=== PATIENT | male | born 1990 | race Caucasian/White ===

== ENCOUNTER 2020-03-11 11:42 | Inpatient (IN) ==
[2020-03-11] MEDS ORDERED: BENTYL PO PRN (12:14)
[2020-03-11] MEDS ORDERED: DULCOLAX PR PRN (12:14)
[2020-03-11] MEDS ORDERED: MOTRIN PO PRN (12:14)
[2020-03-11] MEDS ORDERED: ZOFRAN ODT PO PRN (12:14)
[2020-03-11] MEDS ORDERED: PHENOBARBITAL IV PRN (12:14)
[2020-03-11] MEDS ORDERED: ATARAX PO PRN (12:14)
[2020-03-11] MEDS ORDERED: TYLENOL PO PRN (12:14)
[2020-03-11] MEDS ORDERED: SALINE LOCK IV FLUID XX ONE (12:14)
[2020-03-11] MEDS ORDERED: MAALOX PLUS LIQUID PO PRN (12:14)
[2020-03-11] MEDS ORDERED: ZOFRAN IV PRN (12:14)
[2020-03-11] MEDS ORDERED: ROBAXIN PO PRN (12:14)
[2020-03-11] MEDS ORDERED: DESYREL PO PRN (12:14)
[2020-03-11] MEDS ORDERED: SENOKOT PO PRN (12:14)
[2020-03-11] MEDS ORDERED: NICODERM PATCH TD PRN (12:14)
[2020-03-11] MEDS ORDERED: D5W 1,000 ML IV PRN (12:14)
[2020-03-11] MEDS ORDERED: IMODIUM PO PRN (12:14)
[2020-03-11] MEDS ORDERED: TUBERSOL ID ONE (12:14)
[2020-03-11 12:46] LABS: HEMATOCRIT 43.1 % (42.0-52.0); HEMOGLOBIN 13.8 g/dL (14.0-18.0); MCH 31.9 PG (27-31); MCV 99.8 FL (81-99); MPV 10.2 FL (7.4-10.4); RBC 4.32 XMIL (4.7-6.1); RDW 14.9 % (11.5-14.5); WBC 6.36 X1000 (4.8-10.8)
[2020-03-11 13:02] LABS: AGAP 15; ALBUMIN 5.2 g/dL (3.5-5.0); ALKALINE PHOSPHATASE 44 U/L (32-122); BUN 14 mg/dL (8-22); CALCIUM 9.5 mg/dL (8.8-10.2); CHLORIDE 98 mmol/L (98-107); COSMO 277; CREATININE 0.7 mg/dL (0.7-1.2); ESTIMATED GFR > 60; GLUCOSE 87 mg/dL (70-104); GOT 40 U/L (10-34); GPT 36 U/L (10-44); INR 0.95; POTASSIUM 4.5 mmol/L (3.5-5.1); PROTIME 13.1 Seconds (11.0-16.0); SODIUM 139 mmol/L (136-145); TCO2 26 mmol/L (25-35); TOTAL PROTEIN 7.6 g/dL (6.3-8.3)
[2020-03-11 13:05] LABS: AMYLASE 50 U/L (20-200); LIPASE 40 U/L (13-60)
[2020-03-11 13:30] LABS: URINE SOURCE CLEAN CATCH
[2020-03-11 13:43] LABS: BILIRUBIN URINE NEGATIVE (NEGATIVE); BLOOD URINE NEGATIVE (NEGATIVE); CLARITY CLEAR (CLEAR); COLOR YELLOW; GLUCOSE URINE NEGATIVE (NEGATIVE); KETONE URINE 15 mg/dL (NEGATIVE); PH URINE 6.5; URINE EPITHELIAL CELLS <10 /HPF (<10); URINE WBC <10 /HPF (<10)
[2020-03-11 13:44] LABS: LEUKOCYTES URINE TRACE (NEGATIVE); NITRITE URINE NEGATIVE (NEGATIVE); PROTEIN URINE TRACE mg/dL (NEGATIVE); UROBILINOGEN URINE 0.2 EU/dL (0.2-1.0)
[2020-03-11 13:45] LABS: UR AMPHETAMINES QUAL PRESUMPTIVE POSITIVE (NONE DETECT); UR BARBITUATES QUAL NONE DETECTED (NONE DETECT); UR BENZODIAZEPIN QUAL NONE DETECTED (NONE DETECT); UR CANNABINOIDS QUAL NONE DETECTED (NONE DETECT); UR COCAINE QUAL NONE DETECTED (NONE DETECT); UR METHADONE QUAL NONE DETECTED (NONE DETECT); UR METHAMPHETAMINE QUAL NONE DETECTED (NONE DETECT); UR OPIATES QUAL NONE DETECTED (NONE DETECT); UR OXYCODONE QUAL NONE DETECTED (NONE DETECT); UR PCP QUAL NONE DETECTED (NONE DETECT); UR PROPOXYPHENE QUAL NONE DETECTED (NONE DETECT); UR TCA QUAL NONE DETECTED (NONE DETECT)
[2020-03-11] MEDS ORDERED: M.V.I.-12 10 ML, FOLIC ACID 1 MG, MAGNESIUM SULFATE 1 GM, THIAMINE 100 MG in NS 1,000 ML IV ONE (14:00)
[2020-03-11] MEDS: LIBRIUM PO SCH ×2 (14:22→21:10)
[2020-03-11] MEDS: SEROQUEL PO PRN (21:10)
[2020-03-12] MEDS: LIBRIUM PO SCH ×4 (02:56→20:00)
[2020-03-12] MEDS: THERA M PLUS PO SCH (08:28)
[2020-03-12] MEDS: FOLIC ACID PO SCH (08:28)
[2020-03-12] MEDS: VITAMIN B-1 PO SCH (08:28)
--- NOTE | 2020-03-12 10:18 | PROGRESS NOTE ---
DATE: 03/12/2020 SUBJECTIVE: Patient notes he feels okay. His tremors are improving. Denies any current vomiting or nausea. States sweating is improved. Did sleep a little bit last night. OBJECTIVE: Vital Signs: On physical examination, vitals were reviewed. He is afebrile. Pulse 80s, blood pressure 110s systolic. General: Patient is very pleasant. He is in no distress. HEENT: Normocephalic. Neck: Supple. Cardiovascular: Regular rate. Chest: Clear. Abdomen: Soft. Extremities: Moves all extremities. Neurologic: No changes. ASSESSMENT: 1. Nausea, vomiting. 2. Abdominal pain. 3. Myalgias. 4. Paresthesias. 5. Paroxysmal sweating. 6. Mitral valve prolapse. 7. Narcolepsy. 8. Alcohol abuse withdrawal and stabilization. PLAN: We will continue patient in hospital, continue to follow, continue counseling. Further orders as needed. cc: Cristian Charles MD
--- NOTE | 2020-03-12 10:31 | HISTORY AND PHYSICAL ---
CHIEF COMPLAINT: Nausea, vomiting. HISTORY OF PRESENT ILLNESS: The patient is a very pleasant 29-year-old male who presented to [facility] secondary to nausea, vomiting, abdominal pain and myalgias. States he has been having some minimal tremors although notes that all these symptoms worsen the longer he goes without alcohol. SOCIAL HISTORY: Patient is single, lives at home. He is employed at the [employer]. PAST MEDICAL HISTORY: Significant for narcolepsy, chronic anxiety, history of mitral valve prolapse. MEDICATIONS: Sunosi 150 mg daily for narcolepsy, Effexor, bisoprolol 5 mg for his mitral prolapse syndrome. ALLERGIES: Augmentin and sulfa. REVIEW OF SYSTEMS: CIWA score is elevated at 14 secondary to nausea, vomiting, abdominal pain, paroxysmal sweating, myalgias, tremors, mild headache, moderately anxious, agitated, feels as though his skin is crawling, unable to sleep, poor energy levels. Denies headaches, blurred vision, change in vision. Denies any focalized numbness, tingling, weakness in his extremities. Denies dysuria, urinary frequency, urgency, hesitancy, polyuria or polydipsia. Denies skin rashes, weight loss, weight gain. SUBSTANCE ABUSE HISTORY: Patient was in treatment in [place] in 2018. Unfortunately, he has progressively worsened. He is up to 2 pints a day, messing up at work, has huge anxiety until lunch when he can drink again. Started drinking at 15, currently drinks 2 pints a day for the past 3 or 4 months. Prior to that was 1 to 1-1/2 pints a day. Started smoking at 18, has been vaping for the last year. Denies any other illicit substances. FAMILY HISTORY: Noncontributory. PHYSICAL EXAMINATION: VITAL SIGNS: Reviewed. GENERAL: Patient is awake, alert, pleasant, no distress. HEENT: Normocephalic. NECK: Supple. CARDIOVASCULAR: Regular rate. No murmurs. CHEST: Clear, nonlabored. No wheezing. ABDOMEN: Soft, nondistended, nontender. EXTREMITIES: Moves all extremities. NEUROLOGIC: No focal changes. SKIN: Warm, dry, no rashes. ASSESSMENT: 1. Nausea, vomiting. 2. Abdominal pain. 3. Tremors. 4. Myalgias. 5. Paresthesias. 6. Alcohol abuse withdrawal and stabilization. 7. Mitral valve prolapse. 8. Narcolepsy. PLAN: Will admit patient to hospital, place on high-dose Librium taper, continue to follow. We will restart his home medications as needed. Discussed with patient the use of Librium. Discussed avoidance of alcohol in the future as well as begin discussion with medication-assisted therapy, i.e. naltrexone. cc: Cristian Charles MD
[2020-03-12] MEDS: SEROQUEL PO PRN (22:11)
[2020-03-13] MEDS: LIBRIUM PO SCH ×4 (02:22→21:27)
[2020-03-13] MEDS: EFFEXOR XR PO SCH (08:40)
[2020-03-13] MEDS: THERA M PLUS PO SCH (08:40)
[2020-03-13] MEDS: FOLIC ACID PO SCH (08:40)
[2020-03-13] MEDS: ZEBETA PO SCH (08:40)
[2020-03-13] MEDS: VITAMIN B-1 PO SCH (08:40)
[2020-03-13] MEDS: PATIENT'S OWN MED PO SCH (08:41)
[2020-03-13] MEDS: SEROQUEL PO PRN (21:36)
[2020-03-14] MEDS: THERA M PLUS PO SCH (09:19)
[2020-03-14] MEDS: EFFEXOR XR PO SCH (09:19)
[2020-03-14] MEDS: ZEBETA PO SCH (09:19)
[2020-03-14] MEDS: FOLIC ACID PO SCH (09:19)
[2020-03-14] MEDS: VITAMIN B-1 PO SCH (09:19)
[2020-03-14] MEDS: LIBRIUM PO SCH ×3 (09:19→20:17)
[2020-03-14] MEDS: PATIENT'S OWN MED PO SCH (12:06)
--- NOTE | 2020-03-14 18:16 | PROGRESS NOTE ---
DATE: 03/14/2020 SUBJECTIVE: The patient notes that he is feeling okay. Denies any fevers, chills. Notes his muscle aches have resolved. Denies any current withdrawal symptoms. PHYSICAL EXAMINATION: Vital Signs: Reviewed. He is awake, alert. He is in no distress. Blood pressure is stable. He is afebrile. Pulse 80s. General: The patient is pleasant. HEENT: Normocephalic. Neck: Supple. Cardiovascular: Regular rate. Chest: Clear. Abdomen: Soft. Extremities: Moves all extremities. ASSESSMENT: 1. Nausea. 2. Abdominal pain. 3. Myalgias. 4. Paresthesias. 5. Paroxysmal sweating. 6. Alcohol abuse withdrawal and stabilization. PLAN: We are going to continue the patient in the hospital. Continue to wean Librium. I expect that he can discharge home over the next 1 to 2 days. cc: Cristian Charles MD
--- NOTE | 2020-03-14 18:18 | PROGRESS NOTE ---
DATE: 03/13/2020 SUBJECTIVE: Patient notes he is feeling okay. Denies any fevers, chills. Denies cough, congestion. PHYSICAL: Vital Signs reviewed. Patient is awake, alert. He is in no current respiratory distress.HEENT: Normocephalic. Neck: Supple. CV: Regular rate. Chest: Clear. Abdomen: Soft. Extremities: Moves all extremities. ASSESSMENT: 1. Nausea, vomiting. 2. Abdominal pain. 3. Myalgias. 4. Paresthesias. 5. Paroxysmal sweating. 6. Alcohol abuse, withdrawal and stabilization. PLAN: We are going continue Librium taper, continue counseling. Further orders as needed. cc: Cristian Charles MD
[2020-03-14 20:48] VITALS: BP 107/65
[2020-03-14] MEDS: SEROQUEL PO PRN (20:56)
[2020-03-15] MEDS: ZEBETA PO SCH (08:34)
[2020-03-15] MEDS: EFFEXOR XR PO SCH (08:34)
[2020-03-15] MEDS: FOLIC ACID PO SCH (08:34)
[2020-03-15] MEDS: VITAMIN B-1 PO SCH (08:35)
[2020-03-15] MEDS: PATIENT'S OWN MED PO SCH (08:35)
[2020-03-15] MEDS: LIBRIUM PO SCH (08:35)
[2020-03-15] MEDS: THERA M PLUS PO SCH (08:35)
--- NOTE | 2020-03-16 07:01 | DISCHARGE SUMMARY ---
ADMISSION DATE: 03/11/2020 DISCHARGE DATE: 03/15/2020 DISCHARGE DIAGNOSES: 1. Nausea and vomiting. 2. Abdominal pain. 3. Myalgias. 4. Paresthesias. 5. Paroxysmal sweating. 6. Alcohol abuse withdrawal and stabilization. CONSULTATIONS: None. PROCEDURES: None. BRIEF HOSPITAL COURSE: The patient is a 29-year-old male who presented to the hospital with acute alcohol withdrawal symptoms. He was admitted to the hospital and placed on high-dose Librium taper. Thankfully, he had an uneventful hospital course. On discharge, the patient is awake, alert. He is in no distress. Overall, he is feeling better. All of his withdrawal symptoms have resolved. He has been weaned off of Librium while in the hospital. DISPOSITION: The patient will be discharged home. Will follow up with further long-term inpatient treatment. TIME SPENT: Greater than 30 minutes were spent in total care. cc: Cristian Charles MD
== END 2020-03-15 09:50 | disposition home or self-care (01) | DRG 897 ==
LOC: P.DIRADM 11:42 → P.MEDSURG 11:53
PROVIDERS: ADMIT Family Medicine; ATTEND Family Medicine